=== PATIENT | female | born 1995 | race Caucasian/White ===

== ENCOUNTER 2016-12-14 18:01 | Emergency (ER) | payer OTHER ==
[2016-12-14 18:16] LABS: BASOPHIL COUNT 0.1 K/uL (0-0.1); EOSINOPHIL (%) 2.7 % (0-5); EOSINOPHIL COUNT 0.3 K/uL (0-0.3); HEMATOCRIT 43.5 % (36.0-46.0); IMMATURE GRANULOCYTE (%) 0.2 % (0.0-0.7); INSTRUMENT ABS NEUTROPHIL CT 6.8 K/uL; LYMPHOCYTE COUNT 3.2 K/uL (1.0-2.8); MCH 28.4 PG (29.0-34.0); MCHC 32.6 G/DL (30.0-36.0); MEAN PLAT.VOLUME 12.1 uM^3 (9.5-12.4); MONOCYTE (%) 5.5 % (3-12); MONOCYTE COUNT 0.6 K/uL (0-0.8); NEUTROPHIL (%) 62.3 % (45-76); NEUTROPHIL COUNT 6.8 K/uL (1.8-6.4); PLATELET COUNT 261 K/uL (156-360); RBC DIS.WIDTH-CV 12.4 % (11.8-14.6); RBC DIS.WIDTH-SD 39.6 % (39-53)
[2016-12-14 18:25] LABS: AMYLASE 70 IU/L (1-118); CHLORIDE 105 mEq/L (99-109); POTASSIUM 3.8 mEq/L (3.7-5.4); SODIUM 140 mEq/L (136-147)
[2016-12-14 18:26] LABS: GLUCOSE 100 mg/dL (70-99)
[2016-12-14 18:28] LABS: ANION GAP 13 MEQ/L (2-14)
[2016-12-14 18:29] LABS: SERUM ETHYL ALCOHOL < 10 mg/dL
[2016-12-14 18:31] LABS: GFR ESTIMATE (CALCULATED) > 59 mL/min/; UREA NITROGEN (BUN) 13 mg/dL (9-23)
[2016-12-14 18:33] LABS: LIPASE 43 U/L (1.0-51.0)
[2016-12-14 18:39] LABS: QUANTITATIVE HCG < 4.0 MIU/ML
[2016-12-14] MEDS ORDERED: ROBAXIN750 MG PO (20:06)
[2016-12-14] MEDS ORDERED: LIDOCARE1 EACH TP (20:06)
[2016-12-14] MEDS ORDERED: MOTRIN600 MG PO (20:06)
[2016-12-14] MEDS ORDERED: PERCOCET 5/31 TABLET PO (20:12)
== END 2016-12-14 21:40 | disposition home or self-care (01) ==
LOC: TRA 18:01
PROVIDERS: Emergency Medicine
DX: S30.0XXA Contusion of lower back and pelvis, initial encounter (principal); S06.9X9A Unspecified intracranial injury with loss of consciousness of unspecified duration, initial encounter; M54.2 Cervicalgia; R07.9 Chest pain, unspecified; R10.814 Left lower quadrant abdominal tenderness; R10.816 Epigastric abdominal tenderness; V49.40XA Driver injured in collision with unspecified motor vehicles in traffic accident, initial encounter; Y92.410 Unspecified street and highway as the place of occurrence of the external cause
CPT/HCPCS: 70450; 71250; 72125; 72128; 72131; 74176; 80048; 81003; 82150; 83690; 84702; 85025; 86850; 86900; 86901; 99281; 99284; G0480

== ENCOUNTER 2017-08-12 19:20 | Emergency (ER) | payer BC ==
[~2017-08-12] VITALS: Ht 167.6 cm; Wt 113.6 kg
[~2017-08-12 19:20] MED LIST: FLEXERIL10 MG PO; LIDOCARE1 EACH TP; MOTRIN600 MG PO; PERCOCET 5/31 TABLET PO; ROBAXIN750 MG PO
[2017-08-12 19:28] VITALS: BP 145/93
[2017-08-13] MEDS ORDERED: TRAMADOL HCL50 MG PO (12:07)
[2017-08-13] MEDS ORDERED: FLEXERIL10 MG PO (12:07)
[2017-08-13] MEDS ORDERED: LORTAB 5-325 M1 EACH PO (12:30)
== END 2017-08-12 21:16 | disposition left against medical advice (07) ==
LOC: EME 19:20 → EXP 19:20
DX: R68.89 Other general symptoms and signs (principal); Z53.21 Procedure and treatment not carried out due to patient leaving prior to being seen by health care provider
CPT/HCPCS: 99281

== ENCOUNTER 2017-08-13 09:43 | Emergency (ER) | payer OTHER, BC ==
[~2017-08-13] VITALS: Ht 167.6 cm; Wt 113.6 kg
[2017-08-13] MEDS ORDERED: FLEXERIL10 MG PO (12:07)
[2017-08-13] MEDS ORDERED: TRAMADOL HCL50 MG PO (12:07)
[2017-08-13] MEDS ORDERED: LORTAB 5-325 M1 EACH PO (12:30)
[2017-08-13 12:46] VITALS: BP 125/107
== END 2017-08-13 12:47 | disposition home or self-care (01) ==
LOC: EME 09:43
DX: R20.2 Paresthesia of skin (principal); S16.1XXA Strain of muscle, fascia and tendon at neck level, initial encounter; S06.0X1A Concussion with loss of consciousness of 30 minutes or less, initial encounter; V49.40XA Driver injured in collision with unspecified motor vehicles in traffic accident, initial encounter; Y92.410 Unspecified street and highway as the place of occurrence of the external cause; F17.200 Nicotine dependence, unspecified, uncomplicated; Z88.2 Allergy status to sulfonamides; Z88.8 Allergy status to other drugs, medicaments and biological substances; Z91.041 Radiographic dye allergy status
CPT/HCPCS: 99281; 99284

== ENCOUNTER 2017-11-12 13:17 | Emergency (ER) | payer BC ==
[~2017-11-12] VITALS: Ht 167.6 cm; Wt 115.3 kg
[~2017-11-12 13:17] MED LIST changes: +LORTAB 5-325 M1 EACH PO; +TRAMADOL HCL50 MG PO
[2017-11-12 14:00] LABS: HEMATOCRIT 39.3 % (36.0-46.0); HEMOGLOBIN 13.1 G/DL (11.9-15.5); MCH 28.8 PG (29.0-34.0); MCHC 33.3 G/DL (30.0-36.0); MCV 86.4 FL (83-99); PLATELET COUNT 252 K/uL (156-360); RBC DIS.WIDTH-CV 12.9 % (11.8-14.6); RBC DIS.WIDTH-SD 40.5 % (39-53); RED BLOOD COUNT 4.55 M/uL (3.80-5.20); WHITE BLOOD COUNT 10.2 K/uL (4.1-10.2)
[2017-11-12 14:09] LABS: ALBUMIN 4.3 g/dL (3.2-4.8)
[2017-11-12 14:10] LABS: CHLORIDE 106 mEq/L (99-109); POTASSIUM 3.9 mEq/L (3.7-5.4); SODIUM 140 mEq/L (136-147)
[2017-11-12 14:12] LABS: GLUCOSE 107 mg/dL (70-99); TOTAL PROTEIN 7.4 g/dL (6.4-8.3)
[2017-11-12 14:14] LABS: TOTAL BILIRUBIN 0.4 mg/dL (0.0-1.0)
[2017-11-12 14:15] LABS: ALKALINE PHOSPHATASE 68 IU/L (3-129)
[2017-11-12 14:16] LABS: CREATININE 0.8 mg/dL (0.6-1.3); GFR ESTIMATE (CALCULATED) > 59 mL/min/
[2017-11-12 14:17] LABS: AST (GOT) 14 IU/L (2-34); UREA NITROGEN (BUN) 15 mg/dL (9-23)
[2017-11-12 14:18] LABS: ALT (GPT) 16 IU/L (3-49)
[2017-11-12 14:25] LABS: QUANTITATIVE HCG < 4.0 MIU/ML
[2017-11-12 16:05] LABS: APPEARANCE CLOUDY ((CLEAR)); BILIRUBIN NEGATIVE; BLOOD LARGE; COLOR YELLOW ((YELLOW)); GLUCOSE (STRIP) NEGATIVE; KETONES NEGATIVE; LEUKOCYTES NEGATIVE; NITRITE NEGATIVE; PROTEIN (STRIP) 30; SPECIFIC GRAVITY 1.027 (1.000-1.030); UROBILINOGEN 0.2 MG/DL (0.2-1.0)
[2017-11-12 16:23] LABS: RED BLOOD CELLS TNTC /HPF (0-5)
[2017-11-12 16:24] LABS: BACTERIA RARE /HPF; EPITHELIAL CELLS RARE /HPF; MUCUS NONE SEEN /LPF; UCUL ADDED? YES; WHITE BLOOD CELLS NONE SEEN /HPF (0-5)
[2017-11-12 18:00] VITALS: BP 126/77
== END 2017-11-12 18:06 | disposition home or self-care (01) ==
LOC: EME 13:17
PROVIDERS: Emergency Medicine
DX: N93.9 Abnormal uterine and vaginal bleeding, unspecified (principal); Z88.2 Allergy status to sulfonamides; F17.200 Nicotine dependence, unspecified, uncomplicated
CPT/HCPCS: 80053; 81003; 81025; 84702; 85027; 87086; 99281; 99285; J7030